=== PATIENT | male | born 1960 ===

== ENCOUNTER 2017-03-10 06:16 | Day surgery (SDC) | payer BC ==
[~2017-03-10] VITALS: Ht 175.3 cm; Wt 103.9 kg
[~2017-03-10 06:16] MED LIST: HYDR1TAB94; PROM25
== END 2017-03-10 14:05 | disposition home or self-care (01) ==
LOC: ORSCSDS 06:16
DX: J32.8 Other chronic sinusitis (principal)
CPT/HCPCS: 88305; 88311; C2625; J1100; J2250; J2270; J2405; J2550; J2765; J3010; J3301; J7040; J7120